=== PATIENT | female | born 1985 | race Hispanic/Latino ===

== ENCOUNTER 2019-03-07 14:46 | Emergency (ER) | payer SELFPAY ==
--- NOTE | 2019-03-07 14:53 | Event Note ---
ED Screening Note Date of service: 03/07/19 Time: 14:52 ED Screening Note: 33 y o female presents with left ankle pain x falling in a ditch x 1 week ago worsening pain with limping This initial assessment/diagnostic orders/clinical plan/treatment(s) is/are subject to change based on patients health status, clinical progression and re- assessment by fellow clinical providers in the ED. Further treatment and workup at subsequent clinical providers discretion. Patient/guardian urged not to elope from the ED as their condition may be serious if not clinically assessed and managed. Initial orders include: xr ordered
--- NOTE | 2019-03-07 15:13 | Emergency Department Report ---
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 Patient states the ankle pain is worsening. Patient states she has not seen anybody for this pain. Patient states the ankle swells from time to time. Patient states the pain is an 8 out of 10. Patient states the pain is better with rest and worse with movement. MD Complaint: ankle injury -: Sudden Injury: Ankle: Left Type of Injury: inversion Place: street/outdoors Severity: severe Severity scale (0 -10): 8 Improves With: rest Worsens With: weight bearing, movement, palpation Context: walking Associated Symptoms: swelling, able to partially bear weight - Related Data Previous Rx's Medication Instructions Recorded Last Taken Type traMADol [Ultram] 50 mg PO Q4HR PRN #12 tablet 03/07/19 Unknown Rx Allergies Allergy/AdvReac Type Severity Reaction Status Date / Time No Known Allergies Allergy Unverified 03/07/19 14:47 ED Review of Systems ROS: Stated complaint: LFT ANKLE/LFT LEG PAIN Other details as noted in HPI Comment: All other systems reviewed and negative ED Past Medical Hx - Past Medical History Previous Medical History?: No Hx Asthma: No - Surgical History Past Surgical History?: Yes Additional Surgical History: - Family History Family history: no significant - Social History Smoking Status: Never Smoker Substance Use Type: None - Medications Home Medications: Home Medications Medication Instructions Recorded Confirmed Last Taken Type traMADol [Ultram] 50 mg PO Q4HR PRN #12 tablet 03/07/19 Unknown Rx ED Physical Exam - General Limitations: No Limitations General appearance: alert, in no apparent distress - Head Head exam: Present: atraumatic, normocephalic - Eye Eye exam: Present: normal appearance - ENT ENT exam: Present: mucous membranes moist - Neck Neck exam: Present: normal inspection - Respiratory Respiratory exam: Present: normal lung sounds bilaterally. Absent: respiratory distress - Cardiovascular Cardiovascular Exam: Present: regular rate, normal rhythm. Absent: systolic murmur, diastolic murmur, rubs, gallop - GI/Abdominal GI/Abdominal exam: Present: soft, normal bowel sounds - Rectal Rectal exam: Present: deferred - Extremities Exam Extremities exam: Present: normal inspection (except for left ankle), tenderness (to lateral and medial ankle and the dorsal foot) - Neurological Exam Neurological exam: Present: alert, oriented X3 - Psychiatric Psychiatric exam: Present: normal affect, normal mood - Skin Skin exam: Present: warm, dry, intact, normal color. Absent: rash ED Course Vital Signs 03/07/19 14:51 Temperature 98.4 F Pulse Rate 90 Respiratory 16 Rate Blood Pressure 122/74 O2 Sat by Pulse 99 Oximetry - Reevaluation(s) Reevaluation #1: I discussed all results with patient. I discussed plan of care with patient. Patient agrees with plan of care. Patient is stable for discharge. Patient will be discharged home. Patient given discharge instructions. Patient voiced understanding of discharge instructions 03/07/19 16:50 ED Lower Extremity MDM - Radiology Data Radiology results: report reviewed LEFT ANKLE 3 VIEWS INDICATION / CLINICAL INFORMATION: pain/swelling r/t fall. COMPARISON: None available. FINDINGS: There is diffuse soft tissue swelling throughout the ankle. However I see no fracture or dislocation. Normal alignment of the ankle mortise is maintained. IMPRESSION: Diffuse soft tissue swelling consistent with sprain. No visible fracture. LEFT FOOT, 3 VIEWS INDICATION / CLINICAL INFORMATION: pain/swelling r/t fall. COMPARISON: None available. FINDINGS: No fracture or dislocation. No obvious soft tissue abnormality. Incidental note is made of mild hallux valgus deformity. IMPRESSION: No acute finding. - Medical Decision Making Patient is a 33-year-old female presents emergency room with complaints of ankle pain and foot pain 2 months. Patient's x-rays negative for fracture but findings are consistent with an ankle sprain. Patient will be referred to an orthopedist. Patient given discharge instruction. Patient stable for discharge. - Differential Diagnosis sprain, strain, fracture Critical care attestation.: If time is entered above; I have spent that time in minutes in the direct care of this critically ill patient, excluding procedure time. ED Disposition Clinical Impression: Foot pain, left Ankle pain, left Qualifiers: Chronicity: acute Qualified Code(s): M25.572 - Pain in left ankle and joints of left foot Ankle sprain Qualifiers: Encounter type: initial encounter Involved ligament of ankle: unspecified ligament Laterality: left Qualified Code(s): S93.402A - Sprain of unspecified ligament of left ankle, initial encounter Disposition: TO HOME OR SELFCARE Is pt being admited?: No Does the pt Need Aspirin: No Condition: Stable Instructions: Ankle Sprain (ED) Additional Instructions: Patient to follow up with primary care in 2-3 days. Patient to follow-up with orthopedist in 2-3 days. Patient to return to ER if condition worsens. Patient to take Tylenol or ibuprofen when necessary for pain. Patient to rest. Patient to avoid strenuous exercise and movements of her ankle until cleared by primary care or orthopedist. Patient to elevate limb Prescriptions: traMADol [Ultram] 50 mg PO Q4HR PRN #12 tablet PRN Reason: Pain Referrals: PRIMARY MD RAUL [Primary Care Provider] - 2-3 Days YEMI SOTELO MD [Staff Physician] - 2-3 Days Time of Disposition: 16:53
--- NOTE | 2019-03-07 15:28 | XRay Report ---
LEFT FOOT, 3 VIEWS INDICATION / CLINICAL INFORMATION: pain/swelling r/t fall. COMPARISON: None available. FINDINGS: No fracture or dislocation. No obvious soft tissue abnormality. Incidental note is made of mild hallu x valgus deformity. IMPRESSION: No acute finding. Signer Name: Eva Oneal MD Signed: 03/07/2019 3:24 PM Workstation Name: [id number]
--- NOTE | 2019-03-07 15:49 | XRay Report ---
LEFT ANKLE 3 VIEWS INDICATION / CLINICAL INFORMATION: pain/swelling r/t fall. COMPARISON: None available. FINDINGS: There is diffuse soft tissue swelling throughout the ankle. However I see no fracture or dislocation. Normal alignment of the ankle mortise is maintained. IMPRESSION: Diffuse soft tissue swelling consistent with sprain. No visible fracture. Signer Name: Eva Oneal MD Signed: 03/07/2019 3:45 PM Workstation Name: [id number]
[2019-03-07 17:01] VITALS: BP 121/70
== END 2019-03-07 17:00 | disposition home or self-care (01) ==
LOC: ED 14:46
DX: S93.402A Sprain of unspecified ligament of left ankle, initial encounter (principal); M79.672 Pain in left foot; X50.9XXA Other and unspecified overexertion or strenuous movements or postures, initial encounter; Y93.89 Activity, other specified; Y92.89 Other specified places as the place of occurrence of the external cause; Y99.8 Other external cause status

== ENCOUNTER 2021-08-06 09:14 | Emergency (ER) | payer SELFPAY ==
--- NOTE | 2021-08-06 11:10 | Emergency Department Report ---
ED General Adult HPI - General Chief complaint: Chest Pain Stated complaint: SOB,CHEST,RGHT NECK PAIN Time Seen by Provider: 08/06/21 10:20 Source: patient Mode of arrival: Ambulatory Limitations: No Limitations - History of Present Illness Initial comments: Patient is a 36-year-old female presents emergency room complaints of shortness of breath for approximately 1 month. She states a month ago she was sick with URI symptoms. She states that she is also been having chest pain, cough, palpitations, pain with taking a deep breath. She denies any fever, nausea, vomiting, diarrhea, leg swelling, calf pain, mopped assist. Patient denies any past medical history. No allergies to medications. She denies any recent surgery, recent travel, recent hormone use. She is a current every day smoker 1 pack/day. - Related Data Previous Rx's Medication Instructions Recorded Last Taken Type traMADoL [Ultram] 50 mg PO Q4HR PRN #12 tablet 03/07/19 Unknown Rx Albuterol Sulfate [Proventil Hfa] 6.7 gm IH TID PRN #1 08/06/21 Unknown Rx Benzonatate [Tessalon Perles] 100 mg PO Q8HR PRN #10 cap 08/06/21 Unknown Rx Doxycycline Hyclate [Doxycycline 100 mg PO BID 7 Days #14 tab 08/06/21 Unknown Rx Hyclate TAB] Prednisone [predniSONE 10 mg 10 mg PO .TAPER #1 08/06/21 Unknown Rx (6-Day Pack, 21 Tabs)] Allergies Allergy/AdvReac Type Severity Reaction Status Date / Time No Known Allergies Allergy Unverified 03/07/19 14:47 ED Review of Systems ROS: Stated complaint: SOB,CHEST,RGHT NECK PAIN Other details as noted in HPI Comment: All other systems reviewed and negative ED Past Medical Hx - Past Medical History Previous Medical History?: No Hx Asthma: No - Surgical History Past Surgical History?: Yes Additional Surgical History: - Social History Smoking Status: Never Smoker Substance Use Type: None - Medications Home Medications: Home Medications Medication Instructions Recorded Confirmed Last Taken Type traMADoL [Ultram] 50 mg PO Q4HR PRN #12 tablet 03/07/19 Unknown Rx Albuterol Sulfate [Proventil Hfa] 6.7 gm IH TID PRN #1 08/06/21 Unknown Rx Benzonatate [Tessalon Perles] 100 mg PO Q8HR PRN #10 cap 08/06/21 Unknown Rx Doxycycline Hyclate [Doxycycline 100 mg PO BID 7 Days #14 tab 08/06/21 Unknown Rx Hyclate TAB] Prednisone [predniSONE 10 mg 10 mg PO .TAPER #1 08/06/21 Unknown Rx (6-Day Pack, 21 Tabs)] ED Physical Exam - General Limitations: No Limitations General appearance: alert, in no apparent distress - Head Head exam: Present: atraumatic, normocephalic - Eye Eye exam: Present: normal appearance - ENT ENT exam: Present: mucous membranes moist - Respiratory Respiratory exam: Present: normal lung sounds bilaterally. Absent: respiratory distress, wheezes, rales, rhonchi, stridor, chest wall tenderness, accessory muscle use, decreased breath sounds, prolonged expiratory - Cardiovascular Cardiovascular Exam: Present: regular rate, normal rhythm, normal heart sounds. Absent: systolic murmur, diastolic murmur, rubs, gallop - Neurological Exam Neurological exam: Present: alert, oriented X3 - Psychiatric Psychiatric exam: Present: normal affect, normal mood - Skin Skin exam: Present: warm, dry, intact ED Course Vital Signs 08/06/21 08/06/21 10:09 15:44 Temperature 98.4 F Pulse Rate 100 H 71 Respiratory 16 16 Rate Blood Pressure 143/94 122/82 [Left] O2 Sat by Pulse 100 100 Oximetry ED Medical Decision Making - Lab Data Result diagrams: 08/06/21 11:29 08/06/21 11:29 Lab Results 08/06/21 08/06/21 08/06/21 Range/Units 11:29 11:29 11:29 WBC 9.3 (4.5-11.0) K/mm3 RBC 4.35 (3.65-5.03) M/mm3 Hgb 14.1 (10.1-14.3) gm/dl Hct 42.7 (30.3-42.9) % MCV 98 H (79-97) fl MCH 33 H (28-32) pg MCHC 33 (30-34) % RDW 14.1 (13.2-15.2) % Plt Count 235 (140-440) K/mm3 Lymph % (Auto) 16.4 (13.4-35.0) % [place] % (Auto) 6.6 (0.0-7.3) % Eos % (Auto) 0.3 (0.0-4.3) % Baso % (Auto) 0.3 (0.0-1.8) % Lymph # (Auto) 1.5 (1.2-5.4) K/mm3 [place] # (Auto) 0.6 (0.0-0.8) K/mm3 Eos # (Auto) 0.0 (0.0-0.4) K/mm3 Baso # (Auto) 0.0 (0.0-0.1) K/mm3 Seg Neutrophils % 76.4 H (40.0-70.0) % Seg Neutrophils # 7.1 (1.8-7.7) K/mm3 D-Dimer > 91121 H (0-234) ng/mlDDU Sodium 139 (137-145) mmol/L Potassium 4.3 (3.6-5.0) mmol/L Chloride 103.4 (98-107) mmol/L Carbon Dioxide 23 (22-30) mmol/L Anion Gap 17 mmol/L BUN 6 L (7-17) mg/dL Creatinine 0.5 L (0.6-1.2) mg/dL Estimated GFR > 60 ml/min BUN/Creatinine Ratio 12 % Glucose 102 H (65-100) mg/dL Calcium 9.0 (8.4-10.2) mg/dL Total Bilirubin 0.50 (0.1-1.2) mg/dL AST 12 (5-40) units/L ALT 14 (7-56) units/L Alkaline Phosphatase 72 (35-129) units/L Troponin T < 0.010 (0.00-0.029) ng/mL NT-Pro-B Natriuret Pep 54.84 (0-450) pg/mL Total Protein 7.0 (6.3-8.2) g/dL Albumin 4.4 (3.9-5) g/dL Albumin/Globulin Ratio 1.7 % TSH (0.270-4.200) mlU/mL HCG, Qual (Negative) 08/06/21 08/06/21 Range/Units 11:29 11:29 WBC (4.5-11.0) K/mm3 RBC (3.65-5.03) M/mm3 Hgb (10.1-14.3) gm/dl Hct (30.3-42.9) % MCV (79-97) fl MCH (28-32) pg MCHC (30-34) % RDW (13.2-15.2) % Plt Count (140-440) K/mm3 Lymph % (Auto) (13.4-35.0) % [place] % (Auto) (0.0-7.3) % Eos % (Auto) (0.0-4.3) % Baso % (Auto) (0.0-1.8) % Lymph # (Auto) (1.2-5.4) K/mm3 [place] # (Auto) (0.0-0.8) K/mm3 Eos # (Auto) (0.0-0.4) K/mm3 Baso # (Auto) (0.0-0.1) K/mm3 Seg Neutrophils % (40.0-70.0) % Seg Neutrophils # (1.8-7.7) K/mm3 D-Dimer (0-234) ng/mlDDU Sodium (137-145) mmol/L Potassium (3.6-5.0) mmol/L Chloride (98-107) mmol/L Carbon Dioxide (22-30) mmol/L Anion Gap mmol/L BUN (7-17) mg/dL Creatinine (0.6-1.2) mg/dL Estimated GFR ml/min BUN/Creatinine Ratio % Glucose (65-100) mg/dL Calcium (8.4-10.2) mg/dL Total Bilirubin (0.1-1.2) mg/dL AST (5-40) units/L ALT (7-56) units/L Alkaline Phosphatase (35-129) units/L Troponin T (0.00-0.029) ng/mL NT-Pro-B Natriuret Pep (0-450) pg/mL Total Protein (6.3-8.2) g/dL Albumin (3.9-5) g/dL Albumin/Globulin Ratio % TSH 1.120 (0.270-4.200) mlU/mL HCG, Qual Negative (Negative) Vital Signs 08/06/21 08/06/21 10:09 15:44 Temperature 98.4 F Pulse Rate 100 H 71 Respiratory 16 16 Rate Blood Pressure 143/94 122/82 [Left] O2 Sat by Pulse 100 100 Oximetry - EKG Data EKG shows normal: sinus rhythm, axis, intervals, QRS complexes, ST-T waves Rate: normal - Radiology Data Radiology results: report reviewed Ordering Physician: STACY BUSBY Date of Service: 08/06/21 Procedure(s): XR chest routine 2V Accession Number(s): [id number] cc: STACY BUSBY Fluoro Time In Minutes: XR chest routine 2V INDICATION / CLINICAL INFORMATION: CP, SOB. COMPARISON: None available. FINDINGS: SUPPORT DEVICES: None. HEART /PULMONARY VASCULATURE: No significant abnormality. LUNGS / PLEURA: No significant pulmonary or pleural abnormality. No pneumothorax. ADDITIONAL FINDINGS: No significant additional findings. IMPRESSION: 1. No acute findings. Signer Name: Margarette Faye MD Signed: 08/06/2021 12:16 PM Workstation Name: [id number] Transcribed By: MARIJA Dictated By: MARGARETTE FAYE MD Electronically Authenticated By: MARGARETTE FAYE MD Signed Date/Time: 08/06/211215 DD/ 15 TD/TT: Ordering Physician: STACY BUSBY Date of Service: 08/06/21 Procedure(s): CT angio chest Accession Number(s): [id number] cc: STACY BUSBY CTA CHEST WITH CONTRAST INDICATION / CLINICAL INFORMATION: CP, SOB, pleuritic pain OMNI 350 100 ML. TECHNIQUE: Axial CT images were obtained through the chest after injection of 100 mL's of Omnipaque 350 IV contrast. 3 plane MIP and/or 3D reconstructions were produced. All CT scans at this location are performed using CT dose reduction for ALARA by means of automated exposure control. COMPARISON: Chest radiograph from same day FINDINGS: PULMONARY ARTERIES: No pulmonary emboli. THORACIC AORTA: No significant abnormality. HEART: No significant abnormality. CORONARY ARTERY CALCIFICATION: None. MEDIASTINUM / JING: No significant abnormality. PLEURA: No pleural effusion. No pneumothorax. LUNGS: No acute air space or interstitial disease. ADDITIONAL FINDINGS: None. UPPER ABDOMEN: No acute findings. SKELETAL STRUCTURES: Scattered degeneration. IMPRESSION: 1. No CT evidence for pulmonary embolism. 2. No acute findings. Signer Name: Subhash Mittal DO Signed: 08/06/2021 2:27 PM Workstation Name: [id number] Transcribed By: RAFFAELE Dictated By: SUBHASH MITTAL DO Electronically Authenticated By: SUBHASH MITTAL DO Signed Date/Time: 08/06/211426 DD/ 21 TD/TT: - Medical Decision Making Patient is a 36-year-old female presents emergency room complaints of shortness of breath for approximately 1 month. She states a month ago she was sick with URI symptoms. She states that she is also been having chest pain, cough, palpitations, pain with taking a deep breath. She denies any fever, nausea, vomiting, diarrhea, leg swelling, calf pain, mopped assist. Patient denies any past medical history. No allergies to medications. She denies any recent surgery, recent travel, recent hormone use. She is a current every day smoker 1 pack/day. Vitals are stable. Breath sounds are clear bilaterally. EKG is within normal limits. Chest x-ray 1. No acute findings. lab called and evaluated the d-dimer machine was broken and they were working on it and did not know when it would be fixed. then lab reported D-dimer is greater than 10,000, they called back to nurse and was advised that it was less than 135. CTA 1. No CT evidence for pulmonary embolism. 2. No acute findings. Symptoms likely related to bronchitis and pleurisy. Given that patient is a smoker and symptoms have been ongoing for a month will cover patient with doxycycline. Advised patient Please take medication as prescribed. Increase your fluid intake. Follow-up with your primary care doctor. Return to emergency room for any new or symptoms. Please stop smoking. Critical care attestation.: If time is entered above; I have spent that time in minutes in the direct care of this critically ill patient, excluding procedure time. ED Disposition Clinical Impression: Pleurisy, Tobacco abuse Acute bronchitis Qualifiers: Bronchitis organism: unspecified organism Qualified Code(s): J20.9 - Acute bronchitis, unspecified Disposition: HOME / SELF CARE / HOMELESS Is pt being admited?: No Does the pt Need Aspirin: No Condition: Stable Instructions: Acute Bronchitis, Adult, Slad-so-Ccep, Pleurisy, Sorc-yr-Pzjk, Steps to Quit Smoking, Acute Bronchitis (ED) Additional Instructions: Please take medication as prescribed. Increase your fluid intake. Follow-up with your primary care doctor. Return to emergency room for any new or symptoms. Please stop smoking. Prescriptions: Doxycycline Hyclate [Doxycycline Hyclate TAB] 100 mg PO BID 7 Days #14 tab Prednisone [predniSONE 10 mg (6-Day Pack, 21 Tabs)] 10 mg PO .TAPER #1 Albuterol Sulfate [Proventil Hfa] 6.7 gm IH TID PRN #1 PRN Reason: shortness of breath/wheezing Benzonatate [Tessalon Perles] 100 mg PO Q8HR PRN #10 cap PRN Reason: cough Referrals: PRIMARY CAREMD [Primary Care Provider] - 3-5 Days BASIL MOTT MD [Staff Physician] - 3-5 Days [facility] [Provider Group] - 3-5 Days Time of Disposition: 14:37 Print Language: BAHRAINI
[2021-08-06 11:45] LABS: Basophils % (Auto) 0.3 % (0.0-1.8); Eosinophils % (Auto) 0.3 % (0.0-4.3); Hematocrit 42.7 % (30.3-42.9); Hemoglobin 14.1 gm/dl (10.1-14.3); Lymphocytes # (Auto) 1.5 K/mm3 (1.2-5.4); Lymphocytes % (Auto) 16.4 % (13.4-35.0); Mean Corpuscular HGB Conc 33 % (30-34); Mean Corpuscular Volume 98 fl (79-97); Monocytes # (Auto) 0.6 K/mm3 (0.0-0.8); Monocytes % (Auto) 6.6 % (0.0-7.3); Platelet Count 235 K/mm3 (140-440); Red Blood Count 4.35 M/mm3 (3.65-5.03); Red Cell Distribution Width 14.1 % (13.2-15.2)
[2021-08-06 12:09] LABS: Alanine Aminotransferase 14 units/L (7-56); Albumin 4.4 g/dL (3.9-5); Blood Urea Nitrogen 6 mg/dL (7-17); Hemolysis Index 8
[2021-08-06 12:16] LABS: BUN/Creatinine Ratio 12
--- NOTE | 2021-08-06 12:21 | XRay Report ---
XR chest routine 2V INDICATION / CLINICAL INFORMATION: CP, SOB. COMPARISON: None available. FINDINGS: SUPPORT DEVICES: None. HEART /PULMONARY VASCULATURE: No significant abnormality. LUNGS / PLEURA: No significant pulmonary or pleural abnormality. No pneumothorax. ADDITIONAL FINDINGS: No significant additional findings. IMPRESSION: 1. No acute findings. Signer Name: Shon Faye MD Signed: 08/06/2021 12:16 PM Workstation Name: [id number]
[2021-08-06] MEDS ORDERED: HYDROcodone/ACETAMINOPHEN 5-325 MG TAB PO ONE (14:17)
--- NOTE | 2021-08-06 14:31 | Cat Scan Report ---
CTA CHEST WITH CONTRAST INDICATION / CLINICAL INFORMATION: CP, SOB, pleuritic pain OMNI 350 100 ML. TECHNIQUE: Axial CT images were obtained through the chest after injection of 100 mL's of Omnipaque 3 50 IV contrast. 3 plane MIP and/or 3D reconstructions were produced. All CT scans at this location ar e performed using CT dose reduction for ALARA by means of automated exposure control. COMPARISON: Chest radiograph from same day FINDINGS: PULMONARY ARTERIES: No pulmonary emboli. THORACIC AORTA: No significant abnormality. HEART: No significant abnormality. CORONARY ARTERY CALCIFICATION: None. MEDIASTINUM / JING: No significant abnormality. PLEURA: No pleural effusion. No pneumothorax. LUNGS: No acute air space or interstitial disease. ADDITIONAL FINDINGS: None. UPPER ABDOMEN: No acute findings. SKELETAL STRUCTURES: Scattered degeneration. IMPRESSION: 1. No CT evidence for pulmonary embolism. 2. No acute findings. Signer Name: Subhash Breen DO Signed: 08/06/2021 2:27 PM Workstation Name: [email or web address]
[2021-08-06 15:50] VITALS: BP 122/82
--- NOTE | 2021-08-07 08:57 | Electrocardiograph Report ---
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
== END 2021-08-06 15:51 | disposition home or self-care (01) ==
LOC: ED 09:14
DX: J20.9 Acute bronchitis, unspecified (principal); R09.1 Pleurisy; F17.200 Nicotine dependence, unspecified, uncomplicated
CPT/HCPCS: 36415; 71046; 71275; 80053; 83880; 84443; 84484; 84703; 85025; 85379; 93005; 93010; 99284; Q9967